=== PATIENT | female | born 1960 | race African-American/Black ===

== ENCOUNTER → 2020-02-28 | Outpatient (CLI) | payer MEDICARE ==
[~2020-02-28] MED LIST: QUIN1TAB13 PO
== END | disposition home or self-care (01) ==
LOC: LAB 12:22
PROVIDERS: ATTEND Internal Medicine Gastroenterology
DX: Z01.818 Encounter for other preprocedural examination (principal); Z11.59 Encounter for screening for other viral diseases; Z12.12 Encounter for screening for malignant neoplasm of rectum; Z12.11 Encounter for screening for malignant neoplasm of colon
CPT/HCPCS: U0003-CS

== ENCOUNTER → 2020-03-01 | Day surgery (SDC) | payer MEDICARE ==
[~2020-03-01] MED LIST changes: +HYDROmorphone 2 MG/ML VIAL IV PRN; +IV RINGERS,LACTATED 1000ML 1,000 ML IV SCH; +LIDOCAINE 2% PF 5 ML VIAL. ONE; +MORPHINE SULFATE 2 MG/ML VIAL. IV PRN; +ONDANSETRON PF 4 MG/2 ML VIAL. IV PRN; +PROCHLORPERAZINE 10 MG/2 ML VIAL. IV PRN; +PROPOFOL 10 MG/ML (20ML) VIAL. IV ONE; +fentaNYL PF VIAL 100 MCG/2 ML VIAL IV PRN
[2020-03-01 10:34] VITALS: BP 187/97
--- NOTE | 2020-03-01 12:28 | CONS ---
DATE OF CONSULTATION: REFERRING PHYSICIAN: Codey Wakefield MD REASON FOR CONSULTATION: Colorectal screening. HISTORY OF PRESENT ILLNESS: A 59-year-old -[place] female with past medical history significant for hypertension, is seen for screening colon exam. Bowel habits are regular without diarrhea or constipation. There has been no melena and/or hematochezia. Weight and appetite are stable. Family history is unrevealing for colon polyps or colon cancers, otherwise without additional complaints. PAST MEDICAL HISTORY: Hypertension. ALLERGIES: None. MEDICATIONS: Include quinapril, hydrochlorothiazide 1 daily. FAMILY AND SOCIAL HISTORY: She is a drinker and a smoker. She has had a right meniscus knee repair. FAMILY HISTORY: Significant for high blood pressure with multiple family members, stroke with her mother. REVIEW OF SYSTEMS: HEENT: There is no decrease in visual acuity issues. NEUROLOGIC: No stroke, migraine, neuropathy. PSYCHIATRIC: No mood swings, depression, insomnia. CARDIAC: History of hypertension. PULMONARY: History of shortness breath, productive cough, or asthma. RENAL: No dysuria, frequency, hematuria. MUSCULOSKELETAL: History of osteoarthrosis. HEMATOLOGIC: No bleeding, bruising, coagulopathy. ENDOCRINE: No history of heat or cold intolerance, thyroid disease. RENAL: No dysuria, frequency, hematuria. HEMATOLOGIC: No bleeding, bruising, coagulopathy. PHYSICAL EXAMINATION: GENERAL: Reveals a well-nourished, well-developed -[place] female. VITAL SIGNS: Temperature 97, pulse 60, respirations 20, blood pressure is 130/68. LUNGS: Clear. CARDIOVASCULAR: Reveals an S1, S2 without S3, S4 or appreciable murmur. ABDOMEN: Reveals a soft abdomen, normal bowel sounds, without appreciable hepatosplenomegaly. EXTREMITIES: Reveals no cyanosis, clubbing or edema. IMPRESSION: Colorectal screening is warranted at this time. Risks and benefits of procedure including risk of hemorrhage and perforation for operation have been discussed. The patient is willing to proceed. AMANDA RANDALL MD DR: FELY/waylon JOB#: [id number] / [id number] CODEY Flores MD
--- NOTE | 2020-03-05 14:07 | PATHOLOGY ---
[facility] Accession Number: [id number] . 01 Material submitted: . colon - ASCENDING COLON POLYP. Modifiers: ascending . 01 Clinical history: . SCREENING . 02 Diagnosis: Large bowel "ascending colon polyp", endoscopic biopsy: - Tubular adenoma; negative for high grade dysplasia and malignancy. (MLK/db; 03/04/2020) LBQ 03/04/2020 1544 Local . 02 Electronically signed: . Cher Rodríguez MD, Pathologist NPI- [id number] . 01 Gross description: . The specimen is received in formalin, labeled "Jane Mosqueda, ascending colon polyp" and consists of a polypoid segment of pink-kaba tissue measuring 0.6 x 0.6 x 0.2 cm. The margin is inked black. It is bisected and entirely submitted in A1. (SDY; 03/01/2020) SYU/SYU 03/01/2020 1703 Local . 02 Pathologist provided ICD-10: D12.2 . 02 CPT . 172723 Specimen Comment: A courtesy copy of this report has been sent to [phone] Specimen Comment: [id number] Specimen Comment: Report sent to / DR SANTILLAN Performed at: 01 [facility] [address], [place], [place] [id number] MD Sascha Garay MD Phone: [phone] Performed at: 02 [facility] [address] [place], [place] [id number] MD Lucio Ly MD Phone: [phone]
== END | disposition home or self-care (01) ==
LOC: ENDOS 08:27
PROVIDERS: ATTEND Internal Medicine Gastroenterology
DX: Z12.11 Encounter for screening for malignant neoplasm of colon (principal); D12.2 Benign neoplasm of ascending colon; K64.0 First degree hemorrhoids; K21.9 Gastro-esophageal reflux disease without esophagitis; K63.89 Other specified diseases of intestine; I10 Essential (primary) hypertension; F17.210 Nicotine dependence, cigarettes, uncomplicated; M19.90 Unspecified osteoarthritis, unspecified site; Z82.49 Family history of ischemic heart disease and other diseases of the circulatory system; Z79.899 Other long term (current) drug therapy; Z86.718 Personal history of other venous thrombosis and embolism; Z98.890 Other specified postprocedural states
CPT/HCPCS: 45385; 88305; J2704; 45380

== ENCOUNTER → 2020-10-01 | Outpatient (CLI) | payer MEDICARE ==
[2020-03-01 10:34] VITALS: BP 187/97
[~2020-10-01] MED LIST changes: -HYDROmorphone 2 MG/ML VIAL IV PRN; -IV RINGERS,LACTATED 1000ML 1,000 ML IV SCH; -LIDOCAINE 2% PF 5 ML VIAL. ONE; -MORPHINE SULFATE 2 MG/ML VIAL. IV PRN; -ONDANSETRON PF 4 MG/2 ML VIAL. IV PRN; -PROCHLORPERAZINE 10 MG/2 ML VIAL. IV PRN; -PROPOFOL 10 MG/ML (20ML) VIAL. IV ONE; -QUIN1TAB13 PO; +QUIN1TAB25 PO; -fentaNYL PF VIAL 100 MCG/2 ML VIAL IV PRN
--- NOTE | 2020-10-01 15:31 | KCIC ---
Bilateral digital screening mammograms: Reason for examination: Routine screening. New baseline. Interpretation was made with the benefit of CAD. The skin and nipples show no abnormalities. No abnormal axillary lymph nodes are seen. The breast par enchyma shows scattered fibroglandular density. (Breast density: Category B.) There is a subtle 7.5 m m nodule at the 12:30 B position of the left breast. Further evaluation with coned compression views and ultrasound is recommended. There are no other dominant masses, suspicious calcifications or archi tectural distortions. Impression: 7.5 mm nodular density at approximately the 12:30 B position of the left breast. Recommend further ev aluation with coned compression views and ultrasound. BI-RADS Category 0: Incomplete. Needs additional imaging evaluation. "Our facility is accredited by the [employer] Mammography [employer]." This patient's information has been entered into a reminder system for the patient to be notified wit h the results of her examination and a target date for the next mammogram. Electronically signed by: Pamella Whitehead MD (10/01/2020 3:29 PM) [id number]
== END ==
LOC: KCIC MAMMO 13:53
PROVIDERS: ATTEND Family Medicine
DX: Z12.31 Encounter for screening mammogram for malignant neoplasm of breast (principal)
CPT/HCPCS: 77067

== ENCOUNTER → 2020-10-23 | Outpatient (CLI) | payer MEDICARE ==
[2020-03-01 10:34] VITALS: BP 187/97
--- NOTE | 2020-10-23 12:17 | KCIC ---
Left breast diagnostic digital mammograms: Reason for examination: Faint nodule on screening mammogram. Comparison is made to mammographic exam dated 10/01/2020. Coned compression views were obtained in CC and oblique projections. Small nodular density persists at the 12:30 position approximately 6 cm from the nipple. Further eval uation with ultrasound will follow. IMPRESSION: Faint nodule persists at the 12:30 position of the left breast. Ultrasound to follow. BI-RADS Category 0: Incomplete. Needs additional imaging evaluation. Left breast ultrasound: Ultrasound examination of the left breast and axilla was performed. At the 12:30 position 5 cm from the nipple, there is a 6 x 7.9 x 5 mm hypoechoic nodule which shows s ome mild lobulation. Further evaluation with ultrasound-guided biopsy is recommended. In the axilla, there are lymph nodes present which show focal cortical thickening. Further evaluation with ultrasoun d-guided biopsy is recommended. IMPRESSION: 7.9 mm solid nodule at the 12:30 position 5 cm from the nipple with abnormal cortical thickening in l ymph nodes at the left axilla. Recommend ultrasound guided biopsies of the nodule and of a lymph node with the cortical thickening. BI-RADS Category 4: Suspicious. These findings have been discussed with the patient and the biomedical engineering director for Dr. Wakefield was notif ied about these findings via voice mail at 12:13 PM on 10/23/2020. "Our facility is accredited by the [employer]ammography [employer]." This patient's information has been entered into a reminder system for the patient to be notified wit h the results of her examination and a target date for the next mammogram. Electronically signed by: Pamella Whitehead MD (10/23/2020 12:14 PM) [facility]
== END ==
LOC: KCIC MAMMO 08:44
PROVIDERS: ATTEND Family Medicine
DX: N63.21 Unspecified lump in the left breast, upper outer quadrant (principal)
CPT/HCPCS: 76641; 77065

== ENCOUNTER → 2021-02-11 | Outpatient (CLI) | payer MEDICARE ==
[2020-03-01 10:34] VITALS: BP 187/97
[~2021-02-11] MED LIST changes: +LIDOCAINE 1% Multi-Dose 20 ML VIAL. INJ ONE; +LIDOCAINE 1% Multi-Dose 20 ML VIAL. ONE
--- NOTE | 2021-02-11 13:50 | RAD ---
EXAM: Sonographic guided left breast biopsy; sonographic guided left axillary biopsy; sonographic dong ded biopsy clip placement; left breast postbiopsy mammogram. HISTORY: 60-year-old female presents for sonographic and biopsy of a nodule within the 12:30 position of the left breast and suspicious left axillary lymph node demonstrated on a study performed for 2020. TECHNIQUE: The risks of the procedure were discussed with the patient and written and consent was obt ained. A timeout was performed. Sonographic imaging of the left breast was performed and the lesions of concern were identified. The skin overlying both lesions was sterilely prepped, draped and infiltr ated with 1 percent lidocaine. Multiple core samples were obtained through the lesion of concern at t he 12:30 position and a biopsy clip was advanced into the biopsy bed. Subsequently, multiple samples were obtained through the lymph node of concern within the left axilla and biopsy clip was advanced i nto the biopsy bed. Manual compression was maintained until hemostasis was achieved. Sterile bandages were placed. A post biopsy mammogram demonstrates the biopsy clip within the left breast at expected position. The axillary clip is excluded from the [id number] due to lymph node location. There is increased density within the left breast due to a small hematoma. The patient tolerated the procedure without immediate complication. IMPRESSION: Sonographic guided biopsy of a small hypoechoic lesion at the 12:30 position and a left a xillary lymph node with suspicious morphology and biopsy clip placement. An addendum to this report w ill be submitted when pathology results are available. Electronically signed by: Wendy Almazan MD (02/11/2021 1:48 PM) [id number]
--- NOTE | 2021-02-12 17:23 | PATHOLOGY ---
[facility] Accession Number: [id number] . 01 Material submitted: . PART A: breast - LEFT BREAST MASS 12:30 5 CM FN ; 0.8 CM. Modifiers: left, 12:30, 5 CM FN PART B: lymph node - LEFT AXILLARY LYMPH NODE. Modifiers: left, axilla . 01 Clinical history: . LEFT BREAST MASS ABNORMAL LEFT AXILLARY NODE . 02 Diagnosis: A. Breast tissue, left breast mass 12:30 5 cm from nipple biopsies: - Small focus of sclerosing adenosis with mild duct ectasia, apocrine metaplasia, and focal mild to moderate ductal epithelial hyperplasia, with few associated calcifications. - Stromal fibrosis. . B. Lymph node and fibroadipose tissue, left axillary lymph node core biopsies: - Mild sinus histiocytosis - negative for tumor. (JPM:vidhi; 02/12/2021) [facility] 02/12/2021 1615 Local . 02 Comment: Sections of the left breast mass 12:30 5 cm from nipple needle biopsy reveal several segments of breast tissue. There is a small focus of sclerosing adenosis with mild duct ectasia, apocrine metaplasia, and focal mild to moderate ductal epithelial hyperplasia. This focus measures approximately 2 mm in length. Other segments of breast tissue show stromal fibrosis containing scattered benign ducts and lobules. I am uncertain as to whether or not the lesion is adequately represented in the biopsy. Please correlate with mammographic studies. . Sections of the left axillary lymph node biopsy reveal two segments of lymph node showing mild sinus histiocytosis. There is no evidence of metastatic carcinoma. (JPM:vidhi; 02/12/2021) . 02 Electronically signed: . Lucio Ly MD, Pathologist NPI- [id number] . 01 Gross description: . A. The specimen is received in formalin, labeled "Jane Mosqueda, 1230, 5 cm FN". Received are 3 needle cores of fibrofatty tissue measuring 1.2 x 0.6 x 0.2 cm in aggregate dimensions. The specimen is submitted entirely in cassettes A1-A3. The specimen is collected at 1310 and placed into formalin at 1312 on 02/11/2021. The specimen is removed from formalin at 2340 on 02/11/2021. The total formalin fixation time is 10 hours and 28 minutes. . B. The specimen is received in formalin, labeled "Jane Mosqueda, left axillary node". Received are 3 needle cores of pale kaba to red-brown tissue ranging in length from 0.8 to 1.5 cm by 0.2 cm in diameter. The specimen is submitted entirely in B1-B3. ([facility]; 02/11/2021) NRI/NRI 02/11/2021 1802 Local . 02 Pathologist provided ICD-10: N60.22, N60.42, N60.82, N62 . 02 CPT . 704467, 224964 Specimen Comment: A courtesy copy of this report has been sent to [phone] Specimen Comment: [id number], Specimen Comment: Report sent to , DR JIM / DR SANTILLAN Performed at: 01 [facility] [address], [place] [id number] MD Jatin España MD Phone: [phone] Performed at: 02 [facility] [address] [place], [place] [id number] MD Lucio Ly MD Phone: [phone]
== END ==
LOC: US 14:04
PROVIDERS: ATTEND Surgery
DX: N63.21 Unspecified lump in the left breast, upper outer quadrant (principal); N60.22 Fibroadenosis of left breast; R59.0 Localized enlarged lymph nodes; N60.42 Mammary duct ectasia of left breast; N60.32 Fibrosclerosis of left breast; I10 Essential (primary) hypertension; K21.9 Gastro-esophageal reflux disease without esophagitis; F41.9 Anxiety disorder, unspecified; F32.9 Major depressive disorder, single episode, unspecified; M06.9 Rheumatoid arthritis, unspecified; F17.210 Nicotine dependence, cigarettes, uncomplicated; Z98.890 Other specified postprocedural states
CPT/HCPCS: 19083; 19084; 77065; 88305; 88307; A4648

== ENCOUNTER → 2021-03-20 | Outpatient (CLI) | payer MEDICARE, OTHER ==
[2020-03-01 10:34] VITALS: BP 187/97
[~2021-03-20] MED LIST changes: -LIDOCAINE 1% Multi-Dose 20 ML VIAL. INJ ONE; -LIDOCAINE 1% Multi-Dose 20 ML VIAL. ONE
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
== END ==
LOC: KCIC MRI 12:21
PROVIDERS: ATTEND Family Medicine
DX: M47.813 Spondylosis without myelopathy or radiculopathy, cervicothoracic region (principal); M43.12 Spondylolisthesis, cervical region; R60.0 Localized edema; M25.78 Osteophyte, vertebrae; M48.03 Spinal stenosis, cervicothoracic region
CPT/HCPCS: 72141

== ENCOUNTER → 2021-10-28 | Outpatient (CLI) | payer MEDICARE ==
[2020-03-01 10:34] VITALS: BP 187/97
--- NOTE | 2021-10-28 16:55 | KCIC ---
EXAM: XR HAND 3 VIEWS 10/28/2021 11:01 AM CLINICAL INDICATION: Polyarthralgia COMPARISON: None TECHNIQUE: PA, oblique, and lateral views of the right and left hand FINDINGS: Left hand: No acute fracture. Alignment is normal. There is scapholunate interval widening and proxim al migration of the capitate with narrowing of the capitate thin lunate articulation. There are small cysts in the proximal pole of the scaphoid. Mild degenerative joint disease of the triscaphe and fir st CMC joints, and at the second and third DIP joints. No focal soft tissue abnormality. Right hand: No acute fracture. Alignment is normal. There is scapholunate interval widening and proxi mal migration of the capitate. Small cyst the proximal pole of the scaphoid. Mild degenerative joint disease of the triscaphe and first CMC joints. Moderate degenerative joint disease of the thumb IP veronica int and third DIP joint with prominent osteophytes. There is mild degenerative joint disease of the t hird MCP joint with subchondral cysts. No focal soft tissue abnormality. IMPRESSION: 1. Findings of SLAC wrist bilaterally. 2. Scattered bilateral degenerative joint disease, as described. Electronically signed by: Rose Romero MD (10/28/2021 4:52 PM) [id number]
== END ==
LOC: KCIC 10:57
PROVIDERS: ATTEND Internal Medicine Rheumatology
DX: S43.432A Superior glenoid labrum lesion of left shoulder, initial encounter (principal); S43.431A Superior glenoid labrum lesion of right shoulder, initial encounter; M25.742 Osteophyte, left hand; M25.741 Osteophyte, right hand; M25.842 Other specified joint disorders, left hand; M25.841 Other specified joint disorders, right hand; X58.XXXA Exposure to other specified factors, initial encounter; Y93.89 Activity, other specified; Y92.89 Other specified places as the place of occurrence of the external cause; Y99.8 Other external cause status
CPT/HCPCS: 73130-50